=== PATIENT | female | born 1940 | race Caucasian/White ===

== ENCOUNTER 2020-06-20 10:50 | Outpatient (CLI) | payer MEDICARE, SELFPAY ==
--- NOTE | ~2020-06-20 | MM_ITS ---
EXAMINATION: MM screening mammo BI HISTORY: Screening mammogram TECHNIQUE: Full field digital craniocaudal and mediolateral oblique views of both breasts were obtain ed. CAD analysis was submitted and interpreted. COMPARISON: 01/05/2019, 08/06/2017, 04/09/2016 BREAST PARENCHYMAL COMPOSITION: There are scattered areas of fibroglandular density. FINDINGS: There is stable focal asymmetry in the upper outer quadrant of the right breast. There is n o evidence of suspicious mass, calcification, or architectural distortion to suggest malignancy. The re has been no suspicious interval change. IMPRESSION: 1. No mammographic evidence of malignancy. 2. Recommend routine screening mammography in one year. BI-RADS Category 2: Benign finding(s). Reviewed, dictated and finalized at location A.
== END 2020-06-20 10:51 | disposition home or self-care (01) ==
LOC: CHSIMG 10:52
PROVIDERS: PCP Family Medicine; Visit Provider Obstetrics & Gynecology
DX: Z12.31 Encounter for screening mammogram for malignant neoplasm of breast (principal)
CPT/HCPCS: 77063; 77067

== ENCOUNTER 2020-12-07 08:51 | Outpatient (CLI) | payer MEDICARE, SELFPAY ==
[2020-12-07 09:39] LABS: Cholesterol 249 mg/dL (0-200); HDL Direct 65 mg/dL (40-60); LDL Cholesterol Calculated 169 mg/dL (<130); Triglycerides 75 mg/dL (0-150)
== END 2020-12-07 08:52 | disposition home or self-care (01) ==
LOC: CHSLAB 08:53
PROVIDERS: PCP Family Medicine; Visit Provider Family Medicine
DX: E78.5 Hyperlipidemia, unspecified (principal)
CPT/HCPCS: 36415; 80061

== ENCOUNTER → 2020-12-18 04:46 | Outpatient (CLI) | payer MEDICARE, SELFPAY ==
[2020-12-18 19:57] LABS: SARS-CoV-2 RNA PCR Negative
== END ==
PROVIDERS: PCP Family Medicine; Visit Provider Plastic Surgery
DX: Z01.812 Encounter for preprocedural laboratory examination (principal); Z20.822 Contact with and (suspected) exposure to COVID-19
CPT/HCPCS: C9803; U0003; U0005

== ENCOUNTER 2020-12-21 01:13 | Day surgery (SDC) | payer MEDICARE, SELFPAY ==
[2020-12-06 12:23] VITALS: BMI 18.7
[2020-12-21] VITALS (11 sets, daily range): BP systolic 116–169; BP diastolic 77–92; PULSE 101–137; RESP 10–22; TEMP 36.4–36.7; O2SAT 93–100
--- NOTE | ~2020-12-21 | XR_ITS ---
EXAMINATION: XR surgery orthopedic EXAM DATE: 12/21/2020 10:17 INDICATION: Right thumb arthroplasty. TECHNIQUE: Fluoroscopy used during right hand surgery performed by Dr. Dank Pittman MD. Radiolo gist was not present for the imaging or procedure. Total fluoroscopic time of 46 seconds. The DAP f or this procedure was 0.0176 mGym2. A total of 2 images obtained for the exam. FINDINGS: Images demonstrate right trapezium resection, and an orthopedic pin. Correlate with dru beckwith note. IMPRESSION: Fluoroscopy used during right hand surgery. Reviewed, dictated and finalized at location A.
--- NOTE | 2020-12-21 07:15 | WPDHPUPDATE1 ---
History and Physical Update Update Date/Time: 12/21/20 07:15 History and Physical has been reviewed, including an updated exam of the patient. There are NO changes in the patient's condition. Risks, benefits, and alternatives have been discussed and questions answered. Patient agrees to proceed with procedure.
[2020-12-21] MEDS: LACTATED RINGERS 1,000 ML 30 ML IV CONT ×2 (07:40→11:30)
--- NOTE | 2020-12-21 08:32 | P.PNAN_ITS ---
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 Patient Data Age: 80 Gender: F Height: 5 ft 1 in Weight: 44.1 kg Last Vital Signs Temp 98.0 F 12/21/20 07:07 Pulse 105 H 12/21/20 07:07 Resp 20 12/21/20 07:07 BP 169/90 H 12/21/20 07:07 Pulse Ox 99 12/21/20 07:07 Allergies Allergy/AdvReac Type Severity Reaction Status Date / Time lamotrigine Allergy Intermediate palpitation Verified 12/12/20 10:37 s aspirin AdvReac Intermediate GREAT Verified 12/21/20 07:16 STOMACH DISTRESS Home Medications Medication Instructions Recorded Confirmed Type albuterol sulfate 90 mcg/actuation 1 inhalation INHALATION Q4-6H PRN 08/23/19 12/21/20 History breath activated powder inhaler fluticasone 250 mcg-salmeterol 50 1 inhalation INHALATION DAILY each 08/23/19 12/21/20 History mcg/dose blistr powdr for inhalation raloxifene 60 mg tablet 60 mg PO DAILY 08/23/19 12/21/20 History triamcinolone acetonide 55 55 mcg NASAL .1 spray daily 08/23/19 12/21/20 History mcg/actuation nasal spray,aerosol acetaminophen [Tylenol Extra 500 mg PO QID PRN 12/06/20 12/21/20 History Strength] artifi.tears(hypromellose)(PF) 1 drp EACH EYE TID PRN 12/06/20 12/21/20 History cholecalciferol (vitamin D3) 50 mcg PO DAILY 12/06/20 12/21/20 History kp-ot-LL-[place] 3,6,9 #3 [Women's 1 cap PO QAM 12/06/20 12/21/20 History 50+ Advanced] naproxen sodium [Aleve] 220 mg PO Q12H PRN 12/06/20 12/21/20 History Patient hx anesthesia problems: post op nausea/vomiting (give Zofran and Decadron) Family hx anesthesia problems: none PMFSH Past Medical History Medical History Asthma Hyperlipidemia Osteoporosis Surgical History Surgical History History of adenoidectomy History of hysterectomy 1973 Hx of cataract surgery Hx of tonsillectomy Social History Social History Smoking status: Never smoker Second hand tobacco smoke exposure: No Alcohol intake: never Substance use: never Substance use type: does not use Living arrangements: with family Additional living arrangements comments: PT LIVES WITH SON Spiritual care concerns: No Anes - Eval Final PreProcedure Day of Procedure 12/21/20 08:32 Patient weight: normal Heart: regular rate and rhythm Lungs: clear to auscultation Airway: Mallampati scale class II Neurological: alert and oriented Last oral intake: >/= 8 hours ASA classification: II Emergent: no Anesthetic plan: proceed Anesthesia type and monitoring: general LMA and standard monitoring Informed Consent: The patient's anesthetic plan and its attendant risks and benefits were discussed with the patient/family/POA. Questions were solicited and answers provided to the satisfaction of the patient/family/POA.
[2020-12-21] MEDS: ceFAZolin 2 GM/D5W 50 ML 2 GM/50 ML BAG IVPB (08:53)
[2020-12-21] MEDS: LIDO 1%/EPINEPHRINE 1:100,000 50 ML VIAL INFILTRATE (09:20)
[2020-12-21] MEDS: BUPIVACAINE HCL 0.5% PF 30 ML VIAL INFILTRATE (10:04)
--- NOTE | 2020-12-21 10:47 | P.OPB_ITS ---
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 Implants: Arthrex InternalBrace. Anesthesia: GETA Surgeon: Dank Pittman MD Sr. Vendor Management Associate: Kristin Estimated blood loss (mL): 5 Tourniquet time (min): 56 Drains: No Packing: No Pathology: none sent Complications: No immediate complications Condition: stable Disposition: PACU
--- NOTE | 2020-12-21 10:50 | PM.PROC ---
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 She was taken to the operating room placed supine on the operating table. Time-out was held and confirmed. She was given general anesthesia and the extremity was prepped and draped in usual fashion. The site was carefully marked on her hand and locally infiltrated with 1% lidocaine with epinephrine. The tourniquet was inflated to 250 mmHg. The incision was made as marked. Cutaneous nerves were identified and held out of harm's way with quarter-inch Eliezer drain. The interspace between abductor pollicis longus and extensor pollicis brevis was incised exposing the carpometacarpal joint and the trapezium. This area was carefully dissected with a knife and elevators. The trapezium was removed with rongeurs in 2 pieces. An x-ray was taken demonstrating the satisfactory resection. The Arthrex internal brace set was opened on the back table. Appropriate drill sites were identified and the swivel lock anchor was placed at the radial base of the 2nd metacarpal. The 2nd swivel lock was placed at the radial base of the 1st metacarpal with the thumb held adducted to the index. An appropriate and stable construct was established. Capsular material was repaired as we were able. The extensor pollicis brevis remained intact the abductor pollicis longus remained intact. The skin was closed with a running 5 0 chromic suture. The tourniquet was released. A soft bandage and thumb spica radial wrist splint was applied allowing IP joint active motion. This area was also further infiltrated with 0.5% Marcaine plain. She is discharged to the recovery room in stable condition. A prescription for hydrocodone 5/325 number 14 has been sent to her pharmacy. Patient was given 2 g of Ancef IV at the beginning of the case. Anesthesia: LEXI Surgeon: Dank Pittman MD Group Insurance Specialist: Kristin Estimated blood loss (mL): 5 Tourniquet time (min): 56 Drains: No Packing: No Pathology: none sent Complications: No immediate complications Condition: stable Disposition: PACU
[2020-12-21] MEDS: ONDANSETRON INJ 4 MG/2 ML VIAL IV PUSH (10:58)
[2020-12-21] MEDS: fentaNYL CITRATE INJ (*CRX) 100 MCG/2 ML VIAL 25 MCG IV PUSH ×3 (11:13→11:30)
[2020-12-21] MEDS: diphenhydrAMINE HCl INJ 50 MG/ML VIAL 6.25 MG IV PUSH (11:56)
--- NOTE | 2020-12-21 17:07 | SUR.PHASEII ---
Patient acquired a skin tear when removing IV dressing to Left wrist. RN applied gauze and paper tape to skin tear and wrapped with coban.
== END 2020-12-21 13:20 | disposition home or self-care (01) ==
PROVIDERS: PCP Family Medicine; Visit Provider Plastic Surgery
PROC: (CPT 25447; principal; 2020-12-21 09:00)
DX: M18.9 Osteoarthritis of first carpometacarpal joint, unspecified (principal); J45.909 Unspecified asthma, uncomplicated
CPT/HCPCS: 25447; A9270; C9803; J0690; J1100; J1200; J2405; J2704; J3010; J7120; U0003; U0005

== ENCOUNTER 2021-01-02 13:03 | Outpatient (RCR) | payer MEDICARE, SELFPAY ==
--- NOTE | 2021-01-02 14:26 | OTOPEVAL ---
Thank you for referring Rowena Galan to [facility].? The patient is scheduled to be seen for therapy? ____x/week for ___ weeks. Please review, sign, date and return this plan of care RENNY. I agree with and certify that the following plan of care is medically necessary. Referring Physician Date Admitting Provider: Attending Provider: Dank Pittman MD Referring Provider: *OT Outpatient Evaluation Start: 01/02/21 13:02 Freq: Status: Active Protocol: Document 01/02/21 13:03 [facility] (Rec: 01/02/21 13:58 [facility] [id number]) Therapy Assessment Status Assessment Status Assessment Status Evaluation Outpatient Past Medical History Neurological History Hx Neurological Disorders No Significant History Cardiovascular History Hx Hypercholesterolemia Yes: NO MEDDR RAFAELA Le MONITORING LAB VALUES Hx Other Cardiac Disorders Yes: PT DENEIS CARDIAC SYMPTOMS, ACTIVE HAS SET OF EXERCISES THAT SHE DOES DAILY Respiratory History Hx Asthma Yes Gastrointestinal History Hx Gastrointestinal Disorders No Significant History Genitourinary History Hx Genitourinary Disorders No Significant History Musculoskeletal History Hx Arthritis Yes: HANDS Hx Back Pain Yes Hx Osteoporosis Yes Hx Scoliosis Yes Hx Other Musculoskeletal Disorders Yes: OSTEOARTHRITIS RT THUMB CARPOMETACARPAL JOINT Hematological History Hx Hematological Disorders No Significant History Endocrine History Hx Endocrine Disorders No Significant History HEENT History Hx Cataracts Yes: BILATERALLY REMOVED Hx Tonsillectomy Yes Hx Sinus Problems Yes: SEASONAL ALLERGIES Hx Other HEENT Disorders Yes: DRY EYES Integumentary History Hx Excision Skin Lesion Yes: FOREHEAD Reproductive History Hx Hysterectomy Yes Psychosocial History Hx Psychiatric Disorders No Significant History Pain History History of Any Previous or Ongoing No Significant History Instance of Pain Anesthesia History Hx Post-Op Nausea/Vomiting Yes Evaluation Information Problem Diagnosis decreased ROM and decreased strength Onset 12/21/20 Cause trapezium resection arthroplasty Subjective Information Patient had trapezium Query Text:As Reported By Patient/ resection arthroplasty on 12/21 Family . Patient reports that things are going as good as expected. Patient reports
--- NOTE | 2021-01-12 13:11 | PCOTNOTE ---
OCCUPATIONAL THERAPY UPDATE as of 01/12/21 Subjective: Patient arrives to OT this date and reports that she feels her R thumb is doing better. Patient reports that the custom orthosis is a little uncomfortable, specifically around/near her scar. No new complaints. She reports independence with home programming. Objective: Pain: 1/10 pain in R thumb. AROM for R thumb: IP flexion: 55 degrees MP flexion: 35 degrees Radial Abduction: 40 degrees Palmar Abduction: 40 degrees Patient able to oppose thumb to each fingertip. Sensation: Mild tingling/ altered sensation near MP of the R thumb. Patient also reports tightness with AROM Scar: Mild redness is noted around scar this date. Assessment: Patient has been seen for 4 OT sessions since 01/02/21. She continues to progress towards goals, specifically improving ROM of the R thumb. Patient reports independence with home programming in which she is performing AROM exercises. Patient would continue to benefit from skilled OT services in order to further progress with ROM (PROM as of 10/21/20) and strength of the R thumb. Plan: Patient will continue skilled OT services 2-3x/week to further facilitate ROM, strength and coordination of the R thumb. Thanks, Yari Byrnes, OTR/L
--- NOTE | 2021-01-26 11:10 | PCOTNOTE ---
OCCUPATIONAL THERAPY UPDATE as of 01/26/21 Subjective: Patient arrives to OT this date and reports that she feels her R thumb continues to improve. She mentions some soreness after use but overall no concerns and continued improvement. Objective: Pain: 0/10 pain in R thumb. Patient reports, My thumb is a little sore, depending on what I do. AROM for R thumb: IP flexion: 70 degrees MP flexion: 50 degrees Radial Abduction: 50 degrees Palmar Abduction: 45 degrees Patient able to oppose thumb to each fingertip. Sensation: Very mild tingling over scar. Patient reports that overall sensation in the R thumb has gotten much better. Assessment: Patient has been seen for 8 OT sessions since 01/02/21. She has tolerated OT sessions with good skill and demonstrates good ROM of the R thumb. Patient is tolerating strengthening of the R thumb as well. Feel that patient would continue to benefit from skilled OT services for 1-2 additional sessions in order to further progress strength of the R thumb and wrist. Plan: Patient will continue skilled OT services for 1-2 additional sessions in order to facilitate strength and coordination of the R thumb. Thanks, Yari Byrnes, OTR/L
== END 2021-01-30 13:54 | disposition home or self-care (01) ==
LOC: CHSOT 13:03
PROVIDERS: PCP Family Medicine; Visit Provider Plastic Surgery
DX: Z98.890 Other specified postprocedural states (principal)
CPT/HCPCS: 97110; 97140; 97165

== ENCOUNTER 2021-10-01 09:35 | Outpatient (CLI) | payer MEDICARE, SELFPAY ==
[2021-10-01 10:52] LABS: Cholesterol 227 mg/dL (0-200); HDL Direct 62 mg/dL (40-60); LDL Cholesterol Calculated 135 mg/dL (<130); LDL Cholesterol Direct 118 mg/dL (0-130); Triglycerides 149 mg/dL (0-150)
== END 2021-10-01 09:36 | disposition home or self-care (01) ==
LOC: CHSLAB 09:37
PROVIDERS: PCP Family Medicine; Visit Provider Obstetrics & Gynecology
DX: E78.2 Mixed hyperlipidemia (principal)
CPT/HCPCS: 36415; 80061; 83721

== ENCOUNTER 2021-10-02 12:56 | Outpatient (CLI) | payer MEDICARE, SELFPAY ==
--- NOTE | ~2021-10-02 | MM_ITS ---
EXAMINATION: MM screening koko BI w asael HISTORY: Screening TECHNIQUE: Craniocaudal and mediolateral oblique 3-D tomosynthesis images were obtained and synthetic 2-D images were generated. CAD analysis was submitted and interpreted. COMPARISON: Comparison to multiple prior studies sequentially, with oldest reviewed study dated 09/20. BREAST PARENCHYMAL COMPOSITION: There are scattered areas of fibroglandular density. FINDINGS: There is no evidence of suspicious mass, calcification, or architectural distortion to sugg est malignancy in either breast. There has been no suspicious interval change. IMPRESSION: 1. No mammographic evidence of malignancy. 2. Recommend routine screening mammography in one year. BI-RADS Category 1: Negative Reviewed, dictated and finalized at location A. TION INSPECTOR
--- NOTE | ~2021-10-02 | DEXA_ITS ---
Bone Density Report Name: RENUKA OGDEN Age: 81 Sex: Female Ethnicity: White Date of : 1940 Indication: postmenopausal osteoporosis; Referring Provider: JACQUELINE KLEIN Study: Bone densitometry was performed. Exam Date: October 02, 2021 Accession number: [id number] Bone Density: Region BMD T-score Z-score Classification AP Spine(L1-L4) 0.740 -2.8 -0.1 Osteoporosis Femoral Neck (Left) 0.441 -3.7 -1.4 Osteoporosis Total Hip (Left) 0.547 -3.2 -1.2 Osteoporosis Femoral Neck (Right) 0.383 -4.2 -1.9 Osteoporosis Total Hip (Right) 0.497 -3.7 -1.6 Osteoporosis Femoral Neck Mean 0.412 -3.9 -1.7 Osteoporosis Total Hip Mean 0.522 -3.4 -1.4 Osteoporosis World Health Organization criteria for BMD impression classify patients as: Normal (T-score at or above -1.0), Osteopenia (T-score between -1.0 and -2.5), or Osteoporosis (T-score at or below -2.5). 10-year Fracture Risk: FRAX not reported because: Some T-score for Spine Total or Hip Total or Femoral Neck at or below -2.5 Treated for osteoporosis Previous Exams: Region Exam Age BMD T-score BMD Change BMD Change Date g/cm2 vs Baseline vs Previous AP Spine (L1-L4) 10/02/2021 81 0.740 -2.8 -0.016 (-2.1%) -0.023 (-3.0%) 09/13/2019 79 0.763 -2.6 0.007 (0.9%) 0.003 (0.3%) 08/06/2017 77 0.760 -2.6 0.004 (0.5%) -0.005 (-0.7%) 04/13/2014 73 0.765 -2.6 0.009 (1.2%) 0.009 (1.2%) 03/08/2011 70 0.756 -2.6 Total Hip(Left) 10/02/2021 81 0.547 -3.2 -0.018 (-3.2%) 0.041 (8.1%)# 09/13/2019 79 0.506 -3.6 -0.059 (-10.4% -0.011 (-2.2%) 08/06/2017 77 0.517 -3.5 -0.048 (-8.4%) -0.018 (-3.3%) 04/13/2014 73 0.535 -3.3 -0.030 (-5.3%) -0.030 (-5.3%) 03/08/2011 70 0.565 -3.1 Total Hip(Right) 10/02/2021 81 0.497 -3.7 -0.078 (-13.5% -0.010 (-2.0%) 09/13/2019 79 0.507 -3.6 -0.068 (-11.8% -0.022 (-4.2%) 04/13/2014 73 0.529 -3.4 -0.045 (-7.9%) -0.045 (-7.9%) 03/08/2011 70 0.574 -3.0 *Denotes significance at 95% confidence level, LSC for AP Spine = 0.022 g/cm2, LSC for Total Hip = 0.027 g/cm2 # Denotes dissimilar scan types or analysis methods Impression: The patient has osteoporosis, based on the Right Femoral Neck T-score. No significant bone loss was observed. Discussion: INCREASED RISK OF FRACTURE. BONE DENSITY IS UNDESIRABLY LOW AT ONE OR MORE SKELETAL SITES, CONSISTENT WITH POSTMENOPAUSAL OSTEOPOROSIS. This patient's lowest T-score meets the World Health Organization's (WHO) criteria for osteoporosis at one or more sites (T
== END 2021-10-02 12:57 | disposition home or self-care (01) ==
LOC: CHSIMG 12:57
PROVIDERS: PCP Family Medicine; Visit Provider Obstetrics & Gynecology
DX: Z12.31 Encounter for screening mammogram for malignant neoplasm of breast (principal); M81.0 Age-related osteoporosis without current pathological fracture
CPT/HCPCS: 77063; 77067; 77080

== ENCOUNTER 2021-12-04 16:06 | Outpatient (RCR) | payer MEDICARE, SELFPAY ==
--- NOTE | 2021-12-04 17:01 | PTOPEVAL ---
Thank you for referring Rowena Galan to [facility].? The patient is scheduled to be seen for therapy? ____x/week for ___ weeks. Please review, sign, date and return this plan of care RENNY. I agree with and certify that the following plan of care is medically necessary. Referring Physician Date Admitting Provider: Attending Provider: Gilmar Russo DO Referring Provider: *PT Outpatient Evaluation Start: 12/04/21 16:19 Freq: Status: Active Protocol: Document 12/04/21 16:20 [facility] (Rec: 12/04/21 17:00 [facility] [id number]) Therapy Assessment Status Assessment Status Assessment Status Evaluation Outpatient Past Medical History Neurological History Hx Neurological Disorders No Significant History Cardiovascular History Hx Hypercholesterolemia Yes: NO MEDSDR RUSSO MONITORING LAB VALUES Hx Other Cardiac Disorders Yes: PT DENEIS CARDIAC SYMPTOMS, ACTIVE HAS SET OF EXERCISES THAT SHE DOES DAILY Respiratory History Hx Asthma Yes Gastrointestinal History Hx Gastrointestinal Disorders No Significant History Genitourinary History Hx Genitourinary Disorders No Significant History Musculoskeletal History Hx Arthritis Yes: HANDS Hx Back Pain Yes Hx Osteoporosis Yes Hx Scoliosis Yes Hx Other Musculoskeletal Disorders Yes: OSTEOARTHRITIS RT THUMB CARPOMETACARPAL JOINT Hematological History Hx Hematological Disorders No Significant History Endocrine History Hx Endocrine Disorders No Significant History HEENT History Hx Cataracts Yes: BILATERALLY REMOVED Hx Tonsillectomy Yes Hx Sinus Problems Yes: SEASONAL ALLERGIES Hx Other HEENT Disorders Yes: DRY EYES Integumentary History Hx Excision Skin Lesion Yes: FOREHEAD Psychosocial History Hx Psychiatric Disorders No Significant History Pain History History of Any Previous or Ongoing No Significant History Instance of Pain Anesthesia History Hx Post-Op Nausea/Vomiting Yes Evaluation Information Problem Diagnosis osteoporosis, lumbago, scoliosis Onset 10/23/21 Additional Evaluation Detail oswestry = 10% functionally declined Subjective Information patient reports she was here Query Text:As Reported By Patient/ in early 2019 for lower back Family pain. she reports she has been doing well with her exercises . she reports she was out in her yeard in early october doing
--- NOTE | 2021-12-28 15:50 | PTOPEVAL ---
Thank you for referring Rowena Galan to [facility].? The patient is scheduled to be seen for therapy? ____x/week for ___ weeks. Please review, sign, date and return this plan of care RENNY. I agree with and certify that the following plan of care is medically necessary. Referring Physician Date Admitting Provider: Attending Provider: Gilmar Russo DO Referring Provider: *PT Outpatient Evaluation Start: 12/04/21 16:19 Freq: Status: Active Protocol: Document 12/28/21 11:00 [facility] (Rec: 12/28/21 15:48 [facility] [id number]) Therapy Assessment Status Assessment Status Assessment Status Discharge Outpatient Past Medical History Neurological History Hx Neurological Disorders No Significant History Cardiovascular History Hx Hypercholesterolemia Yes: NO MEDSDR RUSSO MONITORING LAB VALUES Hx Other Cardiac Disorders Yes: PT DENEIS CARDIAC SYMPTOMS, ACTIVE HAS SET OF EXERCISES THAT SHE DOES DAILY Respiratory History Hx Asthma Yes Gastrointestinal History Hx Gastrointestinal Disorders No Significant History Genitourinary History Hx Genitourinary Disorders No Significant History Musculoskeletal History Hx Arthritis Yes: HANDS Hx Back Pain Yes Hx Osteoporosis Yes Hx Scoliosis Yes Hx Other Musculoskeletal Disorders Yes: OSTEOARTHRITIS RT THUMB CARPOMETACARPAL JOINT Hematological History Hx Hematological Disorders No Significant History Endocrine History Hx Endocrine Disorders No Significant History HEENT History Hx Cataracts Yes: BILATERALLY REMOVED Hx Tonsillectomy Yes Hx Sinus Problems Yes: SEASONAL ALLERGIES Hx Other HEENT Disorders Yes: DRY EYES Integumentary History Hx Excision Skin Lesion Yes: FOREHEAD Psychosocial History Hx Psychiatric Disorders No Significant History Pain History History of Any Previous or Ongoing No Significant History Instance of Pain Anesthesia History Hx Post-Op Nausea/Vomiting Yes Evaluation Information Problem Diagnosis osteoporosis, lumbago, scoliosis Onset 10/23/21 Subjective Information patient reports she feels Query Text:As Reported By Patient/ good this date. she reports Family still has some increased soreness in the back at times, but reports she is doing good managing with exercises at home. Pain Assessment Timing of Pain Assessment Timing of Pain Assessment Assessment
== END 2021-12-28 16:19 | disposition home or self-care (01) ==
LOC: CHSPT 16:06
PROVIDERS: PCP Family Medicine; Visit Provider Family Medicine
DX: M81.0 Age-related osteoporosis without current pathological fracture (principal); M41.9 Scoliosis, unspecified; M54.50 Low back pain, unspecified
CPT/HCPCS: 97014; 97110; 97161; 97530; G0283

== ENCOUNTER 2023-04-24 01:47 | Day surgery (SDC) | payer MEDICARE, SELFPAY ==
[2023-04-17 10:13] VITALS: BMI 18.9
--- NOTE | 2023-04-17 10:31 | PC.NURSE ---
Report to the Outpatient Waiting Room, entrance under the green pavilion located off [facility], at time ____0615___ on date __04/24/23 . Planned Procedure Time: ___814 . Time changes happen often and if your time is changed the preop area will call you the afternoon before. - You and your visitor will be asked to self-screen and do not enter if you have any COVID symptoms. - A mask is optional within the hospital at this time. Patients may have clear liquids (water, carbonated beverages, clear teas, apple juice) until 3 hours prior to surgery (0515 AM) with a maximum of 20 ounces. - No food from midnight until time of surgery - Infants may have breast milk until 4 hours before surgery, formula 6 hours prior to surgery. - Children will be allowed to drink immediately following surgery. If applicable, please bring a bottle or sippy cup to assist with drinking. Juice, water, soda, and popsicles are readily available. For infants on formula, please bring formula the day of surgery. Pacifiers are allowed. Take the following medications with a SIP of water the morning of surgery: _ADVAIR INHALER, & TYLENOL, EYE DROPS IF NEEDED_ DO NOT STOP ANY OF YOUR OTHER PRESCRIPTION MEDICATIONS PRIOR TO SURGERY ?EXCEPT THE FOLLOWING Medications to discontinue per ANESTHESIA - _MULTIVITAMINS/SUPPLEMENTS 3 DAYS PRIOR TO SURGERY, Date to take last dose 04/20/23_ Please no make-up, nail divehi, hairspray, perfume, deodorant, or body powder the day of surgery. No jewelry (including any body piercings) or valuables the day of surgery, leave them at home. Please take a shower or bath the night before, or the morning of, surgery with an antibacterial soap. Wear comfortable, loose fitting clothing. Children are encouraged to wear pajamas. - Jewelry must be removed prior to entering the operating room. Rings and piercings that are not removed may be cut off. - The hospital will not accept responsibility for valuables. - Please leave all valuables, including medications, at home the day of surgery. If you are going home after surgery, a licensed regional owner operator truck driver must drive you home. - NO public transportation without another adult if you receive anesthesia. - We recommend that an adult stay with you for 24 hours following discharge. - We also recommend that you do not drive, make important decision, drink alcoholic beverages, or take any drugs that were not prescribed by your health care provider for at least 24 hours after your discharge time. For Pediatric surgeries, we recommend two adults accompany the child home. Follow any additional instructions given to you from your surgeon. If you or anyone in your household have experienced Covid symptoms in the past week, please notify your surgeon or the nurse liaison at the phone number below for possible testing. Telephone instructions given to ____PT and asked if any additional questions and then verbalized understanding. Patient advised to call surgeon office or pre surgery nurse liaison [phone] if any additional questions.
[2023-04-24] VITALS (10 sets, daily range): BP systolic 129–167; BP diastolic 75–90; PULSE 79–91; RESP 14–18; TEMP 36.1–36.5; O2SAT 95–100
--- NOTE | ~2023-04-24 | XR_ITS ---
EXAMINATION: XR surgery orthopedic DATE: 04/24/2023 10:07 INDICATION: Left thumb suspension arthroplasty TECHNIQUE: Single fluoroscopic image of the left wrist and carpus was obtained during procedure perfo rmed by Dr. Pittman. Radiologist was not present for the imaging or procedure. The amount of fluoroscop y time used during this procedure was 0.7 minutes. COMPARISON: None. FINDINGS: Postoperative changes consistent with a left first carpal metacarpal suspension arthroplasty with exp ected lucent gas in the left trapezium resection bed. Alignment of the remaining bones is normal. No fracture identified. The profiled joint spaces are unremarkable. IMPRESSION: 1. Expected appearance post left trapezium resection for first carpal metacarpal suspension arthropla sty. See procedure note for further detail. Reviewed, dictated and finalized at location A. IMPRESSION: 1. Expected appearance post left trapezium resection for first carpal metacarpa l suspension arthroplasty. See procedure note for further detail.
[2023-04-24] MEDS: LACTATED RINGERS 1,000 ML 30 ML IV CONT (06:45)
[2023-04-24] MEDS: ACETAMINOPHEN 500 MG TABLET 1000 MG PO (07:00)
--- NOTE | 2023-04-24 07:15 | WPDHPUPDATE1 ---
History and Physical Update Update Date/Time: 04/24/23 07:15 History and Physical has been reviewed, including an updated exam of the patient. There are NO changes in the patient's condition. Risks, benefits, and alternatives have been discussed and questions answered. Patient agrees to proceed with procedure.
--- NOTE | 2023-04-24 07:38 | WPDANESEPPF ---
Anes - Initial Pre Proc Eval Procedure: Operation Date: 04/24/23 08:15 Proposed Procedures p Left Trapezium Resection Arthroplasty with Arthrex Internal Brace - Dank Pittman MD Date/Time: 04/24/23 07:38 Surgeon: Dank Pittman MD Pre Op Diagnosis: Lt Basal Joint O.A. Patient Data Age: 82 Gender: F Height: 1.55 m Weight: 45.45 kg Allergies Allergy/AdvReac Type Severity Reaction Status Date / Time lamotrigine Allergy Intermediate palpitation Verified 04/24/23 07:46 s aspirin AdvReac Intermediate GREAT Verified 04/24/23 07:46 STOMACH DISTRESS Home Medications Medication Instructions Recorded Confirmed Type albuterol sulfate 90 mcg/actuation 1 inhalation inhalation Q4-6H PRN 08/23/19 04/24/23 History breath activated powder inhaler Wheezing (ProAir RespiClick) fluticasone 250 mcg-salmeterol 50 1 inhalation inhalation DAILY 08/23/19 04/24/23 History mcg/dose blistr powdr for inhalation (Advair Diskus) triamcinolone acetonide 55 55 mcg intranasal .1 spray daily 08/23/19 04/24/23 History mcg/actuation nasal spray,aerosol DRY NOSE acetaminophen 500 mg tablet 500 mg PO QID PRN Pain 12/06/20 04/24/23 History (Tylenol Extra Strength) artifi.tears(hypromellose)(PF) 0.3 1 drp EACH EYE TID PRN Dry Eyes 12/06/20 04/24/23 History % eye drops irlqvrdygjnr-[id number]-TS-omega 1 cap PO QAM 12/06/20 04/24/23 History 3,6,9 #3 400 mcg capsule magnesium hydroxide 1,200 mg 1,200 mg PO DAILY 11/19/22 04/24/23 History chewable tablet Patient hx anesthesia problems: post op nausea/vomiting Family hx anesthesia problems: none Results Review: All pre-operative results and documents have been reviewed as part of the pre-operative evaluation. [facility] Past Medical History Medical History (Updated 11/19/22 @ 13:51 by Gilmar Robb DO) Asthma Hyperlipidemia Osteoporosis Surgical History Surgical History History of adenoidectomy History of hysterectomy 1973 Hx of cataract surgery Hx of tonsillectomy Social History Social History Smoking status: Never smoker Second hand tobacco smoke exposure: No Alcohol intake: never Substance use: never Substance use type: does not use Living arrangements: with family Additional living arrangements comments: LIVES WITH SOHEILA STRICKLAND Occupation/Education: retired Spiritual care concerns: No Anes - Eval Final PreProcedure Day of Procedure 04/24/23 07:38 Patient weight: normal Heart: regular rate and rhythm Lungs: clear to auscultation and normal air movement Airway: Mallampati scale class II Neurological: alert and oriented Last oral intake: >/= 8 hours ASA classification: II Emergent: no Anesthetic plan: proceed Anesthesia type and monitoring: general GIVS and standard monitoring Results Review: All pre-operative results and documents have been reviewed as part of the pre-operative evaluation. Informed Consent: The patient's anesthetic plan and its attendant risks and benefits were discussed with the patient/family/POA. Questions were solicited and answers provided to the satisfaction of the patient/family/POA.
[2023-04-24] MEDS: ceFAZolin 2 GM/D5W 50 ML 2 GM/50 ML BAG IVPB (09:16)
--- NOTE | 2023-04-24 10:38 | PM.OP ---
Procedure Note - Brief Procedure Note - Brief Date of procedure: 04/24/23 Lt Basal Joint O.A. Post-op diagnosis: Same Procedure performed: Left trapeziectomy with Arthrex InternalBrace Surgeon: Dank Pittman MD Equity Analyst: Pieter Anesthesia: GLMA Findings: Arthritis with satisfactory bone stock for this procedure. Implants: Arthrex InternalBrace Tourniquet time (min): 56 Drains: No Packing: No Pathology: None sent Complications: No immediate complications Condition: Stable Disposition: PACU
[2023-04-24] MEDS: oxyCODONE HCL (*CRX) 2.5 MG TAB IR PO (11:20)
[2023-04-24] MEDS: ONDANSETRON HCL ODT 4 MG TABLET PO (13:15)
--- NOTE | 2023-04-24 13:45 | P.OP_ITS ---
Procedure Note - Detailed Date of Procedure 04/24/23 Pre-op Diagnosis Lt Basal Joint O.A. Post-op Diagnosis Same Procedure Performed Left trapezium resection arthroplasty with Arthrex InternalBrace suspension Surgeon Dank Pittman MD Corporate Licensed Broker Arthur Anesthesia General Indications Pain Findings Osteoarthritis with satisfactory bone stock Description of Procedure The left 1st basal joint region was marked on the patient with her consent in the holding area. She was taken to the operating room where she was placed supine on the operating table. At that point I administered a radial and median nerve block with 2% lidocaine. This was based on Anesthesia's concern for her cardiopulmonary status. She was then given general anesthesia. The left upper extremity was prepped and draped in the usual fashion. The site was examined and marked for the incision over the radial 1st metacarpal. This area was also locally infiltrated with 1% lidocaine with epinephrine. The extremity was exsanguinated and the tourniquet inflated to 220 mmHg. The incision was made and blunt dissection toward the 1st carpal metacarpal joint revealed branches of sensory nerve passing through the area. These were held carefully under the skin flaps as the procedure proceeded. The capsule was incised between the EPB and the a APL. The trapezium was dissected around the periphery until it could be split and taken out piecemeal. C-arm images confirmed the vacancy in the carpus. Arthrex InternalBrace set was opened on the back table. The insertion area and angle of approach at the radial base of the 2nd metacarpal was confirmed with images and the C-wire. The guide wire was then passed into the radial base exiting through the opposite cortex. The threaded drill guide was then passed over that and advanced to the medullary aspect of the cortex. This was confirmed with C-arm images. The guidewire was removed and construction project engineer with the fiber lock was passed through the ulnar cortex and seated. The guide was removed. SwiveLock. SwiveLock was passed over the suture tape and positioned appropriately. The extra tape was cut. A portion of the joint capsule was repaired with vicryl suture. The skin was closed with 5 0 nylon. A soft bandage with ortho glass short-arm thumb spica splint was applied. The patient was discharged from the operating room in stable condition. She is discharged with a prescription for hydrocodone 5/325 number 7 and Zofran 4 mg number 7. She was given Ancef 2 g preop. Estimated Blood Loss 3 Tourniquet Time 56 Drains No Packing No Pathology None sent Complications No immediate complications Condition Stable Disposition PACU
== END 2023-04-24 13:35 | disposition home or self-care (01) ==
PROVIDERS: PCP Family Medicine; Visit Provider Plastic Surgery
PROC: (CPT 25447; principal; 2023-04-24 08:15)
DX: M18.12 Unilateral primary osteoarthritis of first carpometacarpal joint, left hand (principal); Z79.51 Long term (current) use of inhaled steroids; J45.909 Unspecified asthma, uncomplicated; M81.0 Age-related osteoporosis without current pathological fracture
CPT/HCPCS: 25447; 99199; A9270; C1713; J0690; J1100; J2405; J2704; J3010; J7120

== ENCOUNTER 2023-05-05 14:13 | Outpatient (RCR) | payer MEDICARE, SELFPAY ==
--- NOTE | 2023-05-06 11:05 | BUOTOPEVAL ---
Assessment and note entered by Twila Sarah OT Evaluation Information Assessment Status Evaluation Diagnosis S/p trapezium resection with internal brace L hand Onset 04/24/23 Subjective Information The patient reports pain on dorsal part of hand and lateral portion of thumb. The patient reports that she is very motivated to return function to her hand because she has a lot of things she wants to do and get done. She stated she has trips she wants to go on and is ready to be able to use her hand. Reported Pain Level Pain Score 2: Self Report Assessment OT Clinical Summary The patient is an 82 year old female who was referred to outpatient OT due to trapezium resection with internal brace L hand. The patient previously demonstrated moderate pain leading to the surgery with WFL AROM and strength of L hand. The patient now demonstrates moderately impaired AROM and limited strength due to surgery. The patient demonstrates swelling from incision and has a scar on lateral portion of L hand. The patient demonstrates 40.9% on QuickDASH questionnaire that shows moderately impaired function of L hand affecting her ability to complete her daily tasks with independence. The patient requires skilled OT to address these deficits and return to PLOF. Plan of Care Interventions Therapeutic Exercise,Manual Therapy,Neuro Re- education,Therapeutic Activities,Hot Pack/Cold Pack,Electrical Stimulation,Sensory Integrative Techn,Self-Care/Home Management,Prosthetic Training,Ultrasound OT Services Indicated Yes Treatment Frequency and 2-3x/week for 10 visits. Duration These treatments will address the objective and functional deficits as defined above. The patient will be advanced safely and appropriately in order for the patient to progress towards his/her prior level of function. Additional exercises will be introduced and as well as a comprehensive home exercise program upon discharge, if needed, ?to ensure carryover of functional gains achieved in the clinic. This treatment plan has been reviewed and agreement upon by the patient.
== END 2023-05-22 23:59 | disposition home or self-care (01) ==
LOC: CHSOT 14:13
PROVIDERS: Visit Provider Plastic Surgery
DX: Z48.89 Encounter for other specified surgical aftercare (principal)
CPT/HCPCS: 97110; 97140; 97165; 97530

== ENCOUNTER 2023-05-28 13:16 | Outpatient (CLI) | payer MEDICARE, SELFPAY ==
--- NOTE | ~2023-05-28 | MM_ITS ---
EXAMINATION: MM screening [facility] BI w asael HISTORY: Screening mammogram TECHNIQUE: Craniocaudal and mediolateral oblique 3-D tomosynthesis images were obtained and synthetic 2-D images were generated. CAD analysis was submitted and interpreted. COMPARISON: 10/02/2021, 06/20/2020, 01/05/2019 BREAST PARENCHYMAL COMPOSITION: There are scattered areas of fibroglandular density. FINDINGS: Stable focal asymmetry is again noted in the upper outer quadrant of the right breast. No s uspicious mass, calcification, or architectural distortion are identified in either breast to suggest malignancy. There has been no suspicious interval change. IMPRESSION: 1. No mammographic evidence of malignancy. 2. Recommend routine screening mammography while the patient remains in good health. BI-RADS Category 2: Benign finding(s). Reviewed, dictated and finalized at location A. IMPRESSION: 1. No mammographic evidence of malignancy. 2. Recommend routine screening mammography while the patient remains in good he alth. BI-RADS Category 2: Benign finding(s).
== END 2023-05-28 13:17 | disposition home or self-care (01) ==
LOC: CHSIMG 13:18
PROVIDERS: PCP Family Medicine; Visit Provider Obstetrics & Gynecology
DX: Z12.31 Encounter for screening mammogram for malignant neoplasm of breast (principal)
CPT/HCPCS: 77063; 77067

== ENCOUNTER 2024-03-05 14:20 | Outpatient (CLI) | payer MEDICARE, SELFPAY ==
--- NOTE | ~2024-03-05 | DEXA_ITS ---
? Bone Density Report? Name:? RENUKA OGDEN Patient ID:??? [id number] Age:? 83 Sex:? Female Ethnicity:? White Date of : 1940 Indication: postmenopausal; screening for osteoporosis; height loss; asthma or emphysema; Referring Provider: UNKNOWN, UNKNOWN Study: Bone densitometry was performed. Exam Date: March 05, 2024 Accession number: [id number] Bone Density: Region? BMD??? T-score? Z-score?? Classification AP Spine(L1-L4)? 0.704?? -3.1? -0.4? Osteoporosis Femoral Neck (Left)? 0.434?? -3.7? -1.4? Osteoporosis Total Hip (Left)? 0.587?? -2.9? -0.8? Osteoporosis Femoral Neck (Right)? 0.475?? -3.4? -1.0? Osteoporosis Total Hip (Right)? 0.581?? -3.0? -0.8? Osteoporosis Femoral Neck Mean? 0.454?? -3.6? -1.2? Osteoporosis Total Hip Mean? 0.584?? -2.9? -0.8? Osteoporosis World Health Organization criteria for BMD impression classify patients as: Normal (T-score at or above -1.0), Osteopenia (T-score between -1.0 and -2.5), or Osteoporosis (T-score at or below -2.5). 10-year Fracture Risk: FRAX not reported because: ? Some T-score for Spine Total or Hip Total or Femoral Neck at or below -2.5 Clinical Information Provided by Patient: Has the following medical conditions: Asthma or Emphysema Patient maximum height was 61.5 Menopause Age: 52 No regular weight bearing exercise Onset of menses at age 14 Number of children 3 Impression: The patient has osteoporosis, based on the Left Femoral Neck T- score. Discussion: INCREASED RISK OF FRACTURE. BONE DENSITY IS UNDESIRABLY LOW AT ONE OR MORE SKELETAL SITES, CONSISTENT WITH POSTMENOPAUSAL OSTEOPOROSIS. This patient's lowest T-score meets the World Health Organization's (WHO) criteria for osteoporosis at one or more sites (T-score -2.5 or below).? In untreated patients, the risk of osteoporotic fracture increases approximately two-fold for each 1.0 SD decrease in T-score.? Low bone density is not the only risk factor for fracture; also consider factors such as patient's age, frailty or poor health, risk of falling, risk of injury, previous osteoporotic fracture, family history of osteoporosis, cigarette smoking, low body weight, etc.? Not everyone with low bone mineral density has osteoporosis; osteomalacia and other metabolic bone disorders should also be considered. Patients who have osteoporosis should be evaluated for specific diseases and conditions (secondary causes) that may cause or contribute to bone loss.? The [place] Association of Clinical Endocrinologists (AACE) and National Osteoporosis Foundation (NOF) recommend pharmacologic intervention for all postmenopausal women whose T-score is in this range. The patient silvestre
== END 2024-03-05 14:21 | disposition home or self-care (01) ==
LOC: CHSIMG 14:25
PROVIDERS: PCP Family Medicine
DX: Z78.0 Asymptomatic menopausal state (principal); M81.0 Age-related osteoporosis without current pathological fracture
CPT/HCPCS: 77080

== ENCOUNTER 2024-12-03 12:46 | Outpatient (CLI) | payer MEDICARE, SELFPAY ==
--- NOTE | ~2024-12-03 | MM_ITS ---
EXAMINATION: MM screening [facility] BI w asael HISTORY: Screening TECHNIQUE: Craniocaudal and mediolateral oblique 3-D tomosynthesis images were obtained and synthetic 2-D images were generated. CAD analysis was submitted and interpreted. COMPARISON: Comparison to multiple prior studies sequentially, with oldest reviewed study dated 04/09. BREAST PARENCHYMAL COMPOSITION: Not dense: There are scattered areas of fibroglandular density. FINDINGS: There is no evidence of suspicious mass, calcification, or architectural distortion to sugg est malignancy in either breast. There has been no suspicious interval change. IMPRESSION: 1. No mammographic evidence of malignancy. 2. Recommend routine screening mammography in one year. BI-RADS Category 1: Negative Reviewed, dictated and finalized at location A.
--- OUTSIDE RECORDS SUMMARY | 2024-12-03 12:56 | XMS_ITS | Referral Summary ---
Author Organization [facility] [address] Address [address] [place] [address] Care Team Providers Care Track Helper Name Role Phone SilvanoGilmar howell Zambrano Primary Care Provider Allergies Active Allergy Reactions Criticality Noted Date Comments Aspirin Medications Advair Diskus 250-50 mcg/dose diskus inhaler 0 Active albuterol HFA (PROVENTIL HFA,VENTOLIN HFA,PROAIR HFA) 90 mcg/actuation inhaler Inhale 2 puffs every 6 (six) hours as needed for wheezing Active triamcinolone (NASACORT) 55 mcg nasal inhaler Administer 2 sprays into each nostril daily Active magnesium citrate 100 mg tablet Take by mouth Active collagen, hydrolysate, bovine, (collagen, hydr, bovine,, bulk,) 100 % powder Active acetaminophen (TYLENOL) 500 mg tablet Take 500 mg by mouth every 6 (six) hours as needed for pain Active Active Problems Problem Noted Date Diagnosed Date 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 Gender Identity Not on file Sexual Orientation Not on file Last Filed Vital Signs Vital Sign Reading Time Taken Comments Blood Pressure - - Pulse - - Temperature 36.8 C (98.2 F) 05/02/2020 9:49 AM CDT Respiratory Rate 17 06/13/2021 10:46 AM CDT Oxygen Saturation - - Inhaled Oxygen Concentration - - Weight 45.4 kg (100 lb) 02/18/2022 9:37 AM CDT Height 153 cm (5' 0.25 ) 02/18/2022 9:37 AM CDT Body Mass Index 19.37 02/18/2022 9:37 AM CDT Plan of Treatment Not on file Insurance [facility] Address: [address] [place] [id number] UHC MEDICARE ADVANTAGE [facility] Address: [address] [address] [place] [phone] Care Teams Track Helper Relationship Specialty Start Date End Date Gilmar Robb DO [address] [place] [address] PCP - General Family Medicine 04/14/20
--- OUTSIDE RECORDS SUMMARY | 2024-12-03 12:56 | XMS_ITS | Continuity of Care Document ---
Author Organization [facility] [place] Address [address] [place] [address] Phone Care Team Providers Care Tile Designer Name Role Phone Robert Iraheta MD Unavailable Unavailable Allergies, Adverse Reactions, Alerts Substance Reaction Status Criticality aspirin Active No Information Medications Medication Instructions Dosage Effective Dates (start - stop) Status Comments Blink OPHTHALMIC DROPS 1 gtt in both eyes when needed - Active Vitamin D3 50 mcg (2,000 unit) tablet take one tablet daily - Active acetaminophen 500 mg tablet take 2 tablet by oral route every 4 - 6 hours as needed not to exceed 8 tablets per 24hrs 1000 MG - Active Advair Diskus 250 mcg-50 mcg/dose powder for inhalation inhale 1 puff by inhalation route 2 times every day in the morning and evening approximately 12 hours apart 1.00 puff - Active Aleve 220 mg tablet take 1 tablet by ora l route every 12 hours as needed 220 MG - Active Crestor 20 mg tablet take 1 tablet by or al route every day 20 MG - Active Evista 60 mg tablet take 1 tablet by ora l route every day 60 MG - Active ProAir HFA 90 mcg/actuation aerosol inhaler inhale 2 puff by inhalation route every 4 - 6 hours as needed - Active Nasacort 55 mcg nasal spray aerosol use prn - Active Co Q-10 200 mg capsule 1 tablet twice a day by mouth - Active Women's Multivitamin Gummies 200 mcg chewable tablet 1 tablet by mouth once a day by mouth - Active Procedures Procedure Date No Charge Optomap Fundus Photos Eye Exam & Treatment Fundus Photography W/ Report Eye Exam & Treatment Office/outpatient Visit, Est NEAR IFR 2IMG MIBMN GLND I&R Fundus Photography W/ Report No Charge Refraction Eye Exam & Treatment Fundus Photography W/ Report Eye Exam & Treatment Fundus Photography W/ Report Eye Exam & Treatment Eye Exam, New Patient No Charge Refraction Post-op Follow-up Visit After Cataract Laser Surgery No Charge Refraction No Charge Refraction After Cataract Laser Surgery No Charge Refraction Office/outpatient Visit, Est No Charge Refraction InflammaDry InflammaDry Eye Exam, New Patient Advance Directives Directive Yes / No Effective Date File Name No Information Encounters Encounter Description Practice Location Reason(s) For Visit Diagnoses Date Provider Providers Copied on [facility]counter [facility], [id number], [place], [place], [address], [place] tel:[phone] [place] Complete Exam (chief complaint) Bilateral artificial lens implantChoroi trung nevus of right eye 3 Esequiel Jones. [address], [facility] [place], [address], [place]. tel:[phone] Referring Provider: Robert Mahoney, [address], [place], [address] . tel:[phone] [facility], [address], [place], [place], [address], tel:[phone] [place] Complete Exam (chief complaint) Bilateral artificial lens implantChoroi trung nevus of right eyeDry eye syndrome of bilateral lacrimal glands 2 Esequiel Jones. [address] [facility], [place], [place], [address], . tel:[phone] Referring Provider: Robert Mahoney, [address], [place], [address] . tel:[phone] Office/outpa tient Visit, Est [facility], [address] [place] [address] [address], [place], [place], [address], tel:[phone] DEI Lester Dry eye evaluation (chief complaint) Dry eye syndrome of bilateral lacrimal glandsMeibomi an gland dysfunction (MGD) of both eyes Feb-0 1 Milagros OD Jessica. [address] [place] [address] [address], [address], [place], [place], [address], [place]. tel:[phone] Referring Provider: Robert Mahoney, [address], [place], [address] . tel:[phone] [facility], [address] [place] [address] [address], [place], [place], [address], [place] tel:[phone] [place] Complete Exam (chief complaint) Bilateral artificial lens implantDry eye syndrome of bilateral lacrimal glandsChoroid al nevus of right eyeMeibomian gland dysfunction (MGD) of both eyesVitreous degeneration, right eye Apr-0 1 Esequiel Jones. [address], [facility], [place], [place], [address], . tel:[phone] Referring Provider: Robert Mahoney, [address], [place], [address] . tel:[phone] [facility], [address] [place] [address] [address], [place], [place], [address], tel:[phone] [place] Complete Exam (chief complaint) Bilateral artificial lens implantChoroi trung nevus of right eyePunctate keratitis, bilateral Feb-2 0 Esequiel Jones. [address], [address], [place], [place], [address], [place]. tel:[phone] Referring Provider: Robert Mahoney, [address], [place], [address] . tel:[phone] [facility], [address] [place] [address] [address], [place], [place], [address], [place] tel:[phone] [place] Complete Exam (chief complaint) Choroidal nevus of right eyeBilateral artificial lens implantEpiret inal membrane (ERM) of right eyeHistory of retinal tearLattice degeneration of retina, left eye 9 Esequiel Jones. [address] [facility], [address], [place], [place], [address], [place]. tel:[phone] Referring Provider: Robert Mahoney, [address], [place], [address] . tel:[phone] [facility], [address] [place] [address] [address], [place], [place], [address], [place] tel:[phone] [place] No Information 9 Esequiel Jones. [address], [address], [place], [place], [address], [place]. tel:[phone] [facility], [address], [place], [place], [address], [place] tel:[phone] [place] Complete Exam (chief complaint) Bilateral artificial lens implantChoroi trung nevus of right eyeBilateral dry eyesHistory of retinal tear 8 Esequiel Jones. [address], [address], [place], [place], [address], [place]. tel:[phone] Referring Provider: Robert Mahoney, [address], [place], [address] . tel:[phone] [facility], [address], [place], [place], [address], [place] tel:[phone] [place] Yag Cap PO (chief complaint) No Information 7 Esequiel Jones. [address] [employer], [address], [place], [place], [address], [place]. tel:[phone] Referring Provider: Robert Mahoney, [address], [place], [address] . tel:[phone] [facility], [address], [place], [place], [address], [place] tel:[phone] [place] Post-Op (chief complaint) No Information 7 Esequiel Jones. [address], [address], [place], [place], [address], [place]. tel:[phone] Referring Provider: Robert Mahoney, [address], [place], [address] . tel:[phone] Office/outpa tient Visit, [facility] [place], [address] [place] [address] [address], [place], [place], [address], [place] tel:[phone] [place] JAMES f/u and IOP check (chief complaint) No Information 7 Esequiel Jones. [address], [address], [place], [place], [address], [place]. tel:[phone] Referring Provider: Robert Mahoney, [address], [place], [address] . tel:[phone] [facility], [address], [place], [place], [address], [place] tel:[phone] [place] Dry eyes (chief complaint) No Information 6 Esequiel Jones. [address] [facility], [address], [place], [place], [address], [place]. tel:[phone] Referring Provider: Robert Mahoney, [address] [facility] [facility] [address], [place], [address] . tel:[phone] [facility], [address], [place], [place], [address], tel:[phone] [place] No Information 6 Esequiel Jones. [address], [address], [place], [place], [address], [place]. tel:[phone] Family History Family Member Type Diagnosis Age At Onset No Information Payers Payer name Insurance type Covered libertarian ID Authoriza karen(s) [employer] Mdcr Gold Adv Prime CI [id number] Social History Type Description Quantity Date Captured Comments Alcohol Use Details No Caffeine Use Details coffee and tea 3 cups per day 2022 Tobacco Use Status Ex-cigarette smoker 023 Smoking Status Former smoker Smoking Tobacco Use Details Cigarette: Age Stopped: 21 Cigarette: No Details Available Sex Female Gender Identity Female Chief Complaint And Reason For Visit From encounter dated '02/14/2023 13:30'. Complete Exam (chief complaint). Description: The 82 year old patient presents for evaluation of Complete Exam in the right eye and left eye. Patient denies any changes with her VA. Patient has dry eyes and is using Blink prn OU. Reason For Referral Reason For Referral No Information Plan Of Treatment Date Type Action Status Goal Tobacco cessation counseling completed Goal Tobacco cessation counseling completed Patient Education Learning About Your Eye s completed Patient Education Dry Eyes: Care Instruct ions completed Patient Education Learning About Vitreous Detachment completed Patient Education Dry Eyes: Care Instruct ions completed History Of Present Illness Encounter Date Complaint History Of Prese nt Illness Complete Exam The 82 year old patient presents for evaluation of Complete Exam in the right eye and left eye. Patient denies any changes with her VA. Patient has dry eyes and is using Blink prn OU. Complete Exam The 81 year old patient presents for evaluation of Complete Exam in the right eye and left eye. Hx of PCIOL OU, YAG PC OU, SPK OU, ERM OD, PVD OD, Nevus OD, and Lattice degen OU. Patient does state eyes are very dry and they burn as well. Patient using Blink, Retaine, and gel tears prn OU. Dry eye evaluation The 80 year o ld female presents for evaluation of Dry eye evaluation in the right eye and left eye. Referred by Dr. Iraheta. Pt states that she is having dryness in both eyes. Both eyes equally the same. Pt is currently using Blink gel tears 2-3 x day OU PRN.TBUT 4.78/3.82SPEED 08/21 Complete Exam The 80 year old female presents for evaluation of Complete Exam in the right eye and left eye. Hx of PCIOL OU, YAG PC OU, JAMES OU, Nevus OD, ERM OD, PVD OD, and Lattice degeneration OU. Pt she uses Blink enzo TID-QID and OU has been itching, burning, and dry, x yrs, seems to change according to the seasons. Pt reports she received a letter from [facility] and she thinks she may go there for eval. Pt reports she feels like she is not seeing things as clear as she used to, OU. Complete Exam The 79 year old female presents for evaluation of Complete Exam in the right eye and left eye. Hx of Nevus OD, JAMES OU, PCIOL OU, YAG PC OU, ERM OD, PVD OD, and Lattice degen OS. Patient denies any problems or changes with VA. Patient states she is using Blink prn OU for her dry eyes. Complete Exam The 78 year old female presents for a complete exam ou monitoring choroidal nevus OD and JAMES ou. Patient is pseudo ou with yag caps ou. Patient uses Blink bid ou. Patient denies any changes in vision ou. Complete Exam The 77 year old female presents for Complete Exam in the right eye and left eye. Hx of PCIOL OU, YAG PC OU, MGD OU and Retinal Laser OD. Pt reports OU are dry, x years, worse in the winter, Blink gel helps. Pt reports she uses the Blink get BID-4-5x/day. Pt reports no change in VA, OU, DV and NV, since last appt. Yag Cap PO The 76 year old female presents for Yag Cap PO in the left eye. Pt states vision is better after Yag PC OS. Pt is currently using Blink every 4 hours. Pt states she uses FML BID OU for dryness and states it does help. Pt states eyes are burning today. Pt wears OTC readers for near and does not want rx for glasses. Post-Op The 76 year old female presents for a 1 month post op YAG PC OD. Patient states OD vision is better and can tell a difference between eyes. Patient c/o cloudy vision OS. JAMES f/u and IOP check The 76 yea r old female presents for JAMES f/u and IOP check in the right eye and left eye. Pt reports her symptoms have not seemed to improve. Pt reports she took the Doxycycline QD PO x 1 week, and it made her skin feel tingly and she saw no improvement so she quit. Pt reports she uses Blink Gel 3-4 x a day. Pt reports she did warm compresses QD x 1 wk; saw no improvement; then quit. Patient reports the vision OD>OS has become blurred. She has noticed difficulty reading road signs day/night and is bothered by glare from headlights and on bright days. Patient reports her near vision with her glasses is not as good as it used to be. Dry eyes The 76 year old female presents for Dry eyes OU, patient c/o burning and blurry v/a that comes and goes. She also wants to talk to the doctor about her torn retina from 2008, if there is any new treatment for the v/a that was lost then. Patient states v/a is stable, and uses Soothe/Systane PRN OU. Functional Status Date Functional Assessmen t No Information Instructions Date Instruction Additional Infor nando Impression/Plan Impression/Plan Impression/Plan Impression/Plan Impression/Plan Impression/Plan Choroidal nevus of r ight eye - Educational material given Related to Choroidal nevus of right eye Impression/Plan - Ps eudophakia OU- IOL's in good position- Open pc OU.- IOP is stableNevus OD:- Appears stable- Will continue to monitorDry eyes OU:- Recommend artificial tears prn- Will monitorHistory of Retina Tear OD:- Appears stable- Will continue to monitor- Return in 1 year for complete exam or sooner with problems. Follow up - Return i n 1 year with Robert Iraheta M.D. for Complete Exam. Follow up - Return t o clinic in early June for complete exam Impression/Plan - 2 weeks s/p Yag Capsulotomy OS:- Patient has healed well.- The vision has improved OS following the laser.- Vision and IOP stable OU.- Patient has finished the FML drops; no refills are recommended.- Instructed patient to continue the AFT and warm compresses.- Recommend patient return in early June for complete exam or sooner with problems.*Patient would like to discuss starting Restasis at her next appointment to help prevent severe dryness over the Winter. Impression/Plan - 1 month s/p Yag Laser Capsulotomy OD:- Significant visual improvement following laser OD.- Patient has healed well.Posterior Capsular Opacification OS:- PCO accounts for patient's residual visual complaints.- Diagnosis discussed in detail. - Yag Laser treatment, R/B/A discussed with patient.- Advised patient to call with new onset of floaters, flashes of light or a veil covering part of the vision.- Patient elects to proceed with Yag Laser Capsulotomy OS today.- Consent was obtained.- Patient to return in 2-4 weeks for Yag Cap PO OS. Follow up - Return t o clinic in 2-4 weeks for Yag Cap PO OS Other secondary jeremy ract, right eye - Educational material given Related to Other secondary cataract, right eye Impression/Plan - Oc ular Dryness OU:- The dryness has significantly improved OU compared to previous.- Recommend patient continue to use the AFT as needed.MGD/JAMES OU:- MGD OS>OD discussed with patient.- Ocular surface is dramatically improved today, although symptoms are only mildly improved- Continue AT QID OU- Resume WC BID OU- Prescribed FML 0.1% BID OU- Explained FML will be a short term medicationPosterior Capsular Opacification OD>OS:- PCO accounts for patient's visual complaints.- Diagnosis discussed in detail. - Yag Laser treatment, R/B/A discussed with patient.- Advised patient to call with new onset of floaters, flashes of light or a veil covering part of the vision.- Patient elects to proceed with Yag Laser Capsulotomy OD today.- Consent was obtained.- Patient to return in 2-4 weeks for Yag Cap PO OD + Yag Cap OS (needs BCVA & BAT) Follow up - Return t o clinic in 2-4 weeks for Yag Cap PO OD + Yag Cap OS (MRX + BAT) Follow up - 3 month IOP check and follow up for Dryness Impression/Plan - PC O OD>OS discussed with patient. Patient is not currently bothered by the vision at this time. Advised to let us know if she becomes bothered by vision in the future and we can perform YAG capsulotomy. Significant Ocular dryness discussed in detail with patient. Recommend patient begin using warm compresses x 5 minutes BID. Recommend patient try using gel drops 3-4 times daily in both eyes. List of common brands given to patient. Prescribed Doxycycline 50mg BID x 2 weeks, then QD after that. Explained she will continue the Doxycycline for a total of 3 months. Recommend patient return in 3 months or sooner with problems. Assessments Type Assessment Date assessment Bilateral artificial lens implan t assessment Choroidal nevus of right eye Jan Patient Care Teams Name Effective Dates (start - stop) Status Members No Information
--- OUTSIDE RECORDS SUMMARY | 2024-12-03 12:56 | XMS_ITS | Clinical Summary ---
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 Surgical History Surgery Date Site/Laterality Comments SINUS SURGERY TONSILLECTOMY CATARACT EXTRACTION HAND SURGERY Medical History Medical History Date Comments Skin cancer Allergies Asthma Hyperlipidemia Allergic rhinitis Sinusitis Arthritis Gastric reflux Osteoporosis Family History Medical History Relation Name Comments Cancer Father Cancer Mother Relation Name Status Comments Father Mother Social History Tobacco Use Types Packs/Day Years [...] on file 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 Gender Identity Not on file Sexual Orientation Not on file Obstetrics History Last Filed Vital Signs Vital Sign Reading [...] 02/18/2022 9:37 AM CDT Plan of Treatment Health Maintenance Due Date Last Done Comments Depression Screening 1942 Fall Risk Assessment 1942 Osteoporosis Screening-Bone Density Scan 1942 DTaP/Tdap/Td Vaccine (1 - Tdap) 1953 Hepatitis B Screening 1960 Pneumococcal vaccine 65+ (1 of 1 - PCV) 1992 Zoster Vaccine (1 of 2) 1992 Well Visit 65+ 2007 Covid-19 Vaccine (3 - season) 04/25/202407/2021, 10/13/2020 Influenza Vaccine (#1) 2024 Insurance [facility] MEDICARE [facility] Address: [facility] [address] [place] [address] [facility] MEDICARE [facility] Address: [facility] [id number] [place] [phone] Care Teams Staff Field Engineer Relationship Specialty Start Date End Date Gilmar Robb DO [address] [place] [address] PCP - General Family Medicine 04/14/20
--- OUTSIDE RECORDS SUMMARY | 2024-12-03 12:56 | XMS_ITS | Clinical Summary ---
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 Gender Identity Not on file Sexual Orientation Not on file Plan of Treatment Health Maintenance Due Date Last Done Comments DTaP, Tdap and Td Vaccines ( 1 - Tdap) 1961 Zoster Vaccines (1 of 2) 1992 Annual Medicare Wellness Visit 2007 Dexa Scan (General) 2007 Pneumococcal Vaccine: 65+ Ye ars (1 of 1 - PCV) 2007 RSV Immunization or 60+ Years (1 - 1-dose 75+ series) 2017 COVID-19 Vaccine ( - 2023-2 5 season) 2024 Meningococcal B Vaccine Aged Out No l onger eligible based on patient's age to complete this topic Meningococcal Vaccine Aged Out No thania mckenzie eligible based on patient's age to complete this topic RSV Immunizations Under 20 Months Aged Out No longer eligible based on patient's age to complete this topic Insurance MED REPLACE [facility] MEDICARE
== END 2024-12-03 12:47 | disposition home or self-care (01) ==
LOC: CHSIMG 12:50
PROVIDERS: PCP Family Medicine
DX: Z12.31 Encounter for screening mammogram for malignant neoplasm of breast (principal)
CPT/HCPCS: 77063; 77067

== ENCOUNTER 2025-08-21 12:12 | Emergency (ER) | payer MEDICARE, SELFPAY ==
--- OUTSIDE RECORDS SUMMARY | 2025-08-21 12:17 | XMS_ITS | Clinical Summary ---
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 Gender Identity Not on file Sexual Orientation Not on file Plan of Treatment Health Maintenance Due Date Last Done Comments DTaP, Tdap and Td Vaccines ( 1 - Tdap) 1961 Pneumococcal Vaccine: 50+ Ye ars (1 of 1 - PCV) 1992 Zoster Vaccines (1 of 2) 1992 Annual Medicare Wellness Visit 2007 Dexa Scan (General) 2007 RSV Immunization or 60+ Years (1 - 1-dose 75+ series) 2017 COVID-19 Vaccine ( - 2024-2 6 season) 2025 Influenza Adult (#1) 2025 Hepatitis A Vaccines Aged Out No long er eligible based on patient's age to complete this topic Meningococcal B Vaccine Aged Out No l onger eligible based on patient's age to complete this topic Meningococcal Vaccine Aged Out No thania mckenzie eligible based on patient's age to complete this topic RSV Immunizations Under 20 Months Aged Out No longer eligible based on patient's age to complete this topic Insurance MED REPLACE [facility] MEDICARE
--- OUTSIDE RECORDS SUMMARY | 2025-08-21 12:17 | XMS_ITS | Data Portability ---
Author Organization [facility], [id number] [facility] Address [address] [place] [address] Assessment No assessment recorded. Plan of Treatment Reminders Order Date Submit Date Provider Last Modified By Organization Details Last Modified Time Details Appointments None record ed. Lab None record ed. Referral None record ed. Procedures None record ed. Surgeries None record ed. Imaging None record ed. Medication Orders None record ed. Patient TargetsNo targets recorded. Patient InstructionsNo instructions recorded. Reason for Referral None Reported. Problems Name Problem SNOMED Code Status Onset Date Resolution Date Notes Provider Name and Address Organization Details Recorded Time Asthma 539363783 Active Asthma, Problem Code: 493.90; Problem Code Type: ICD-9; Not Available [facility] 13:08:16 Mixed hyperlipid emia 685920833 Active Elevated Cholester ol/Trigly cerides, Problem Code: 272.2; Problem Code Type: ICD-9; Not Available [facility] 13:08:16 Osteoporos is 76925741 Active Osteoporo sis, Problem Code: 733.00; Problem Code Type: ICD-9; Not Available [facility] 13:08:16 Folliculit is 06300663 Active 2024 ROSEMARIE MCELROY MD [address], [place], [address] , [facility] 13:06:26 Problem Notes None recorded. Procedures Surgical History Date Name Laterality Status Provider Name and Address Organization Details Recorded Time 11/24/19 Date of Last Mammogram completed Rena Membreno [facility] 01/19/2025 12:56:26 08/25/19 11 Date of Last Colonoscopy completed Rena [facility] 01/19/2025 12:56:39 11/08/19 05 Date of Last Pap Smear completed Rena [facility] 01/19/2025 12:56:12 dilation and curettage completed Not Available [facility] 12/23/2024 16:02:35 other specified functional endoscopic sinus surgery - therapeutic endoscopy of nose or sinus completed Not Available [facility] 12/23/2024 16:02:35 tonsillectomy completed Not Available [facility] 12/23/2024 16:02:35 vaginal hysterectomy completed Not Available [facility] 12/23/2024 16:02:35 colonoscopy completed Not Available [facility] 12/23/2024 16:02:35 destruction of lesion of skin completed Not Available [facility] 12/23/2024 16:02:35 [facility] 01/19/2025 12:51:[address] [facility] 01/19/2025 12:51:34 Imaging Results None recorded. Procedure Notes None recorded. Medical Equipment None Reported. Allergies Allergen ID Allergen Name Allergen Category Reaction Reaction Severity Criticality Documentation Date Start Date Code Code System Note Provider Name and Address Organization Details Recorded Time 881925 aspirin medicatio n Not available Not available Not available 12/23/2024 1191 RxNorm NOTE: Aller gyRea ction : 'Stom ach Upset '; Not Available [facility] 13:59:32 057095 house dust allergeni c extract environme nt,medica tion Not available Not available Not available 01/19/2025 38977 9 RxNorm Rena [facility] 12:51:34 Medications Name Sig Start Date Stop Date Status Note LastModified by Organization Details LastModified Time Wixela Inhub 250 mcg-50 mcg/dose powder for inhalation USE 1 INHALATION ORALLY TWICE DAILY, RINSE MOUTH AFTER. active Not Available Not Available No t Available Vitals Date Recorded Body height Body mass index (BMI) Body weight Systolic And Diastolic Provider Name and Address Organization Details Last Updated DateTime 01/19/2025 153.035 cm 19.2 kg/m2 00525.64 g 134/76 mm[Hg] Rena Membreno [facility] 01/19/2025 12:58:09 Social History Question Answer Notes LastModified by [employer] Details LastModified Time Tobacco Smoking Status Former Smoker Note: ; Age Start/Stop: teen/teen Not Available [facility] 12/23/2024 18:15:59 Do You Have An Advance Directive? No [email or web address] Information not available 01/19/2025 What Is Your Level Of Caffeine Consumption? None [email or web address] Information not available 01/19/2025 What Type Of Diet Are You Following? REGULAR Information not available 01/19/2025 What Is Your Relationship Status? Other Note: Information not available 12/23/2024 How Much Tobacco Do You Smoke? No [email or web address] Information not available 01/19/2025 Sex: Female Functional Status Question Answer Note LastModified by [employer] Details LastModified Time Do you use any illicit or recreational drugs? No Note: Information not available 12/23/2024 What is your level of alcohol consumption? Occasional Qty: 0-2 per day; Note: Use status used: Never Information not available 12/23/2024 Are you currently employed? No [email or web address] Information not available 01/19/2025 What is your occupation? Note: retired Information not available 12/23/2024 Mental Status None recorded. Family History Relationship Description Onset Age of this Age Resolved Age Notes LastModified by Organization Details LastModified Time Father Malignant neoplastic disease Cancer Fa-Pro state Mom-Br ain Not available 12/23/2024 18:35:32 Mother Malignant neoplastic disease Cancer Fa-Pro state Mom-Br ain Not available 12/23/2024 18:35:32 Sister Kidney disease Kidney Proble ms Not available 12/23/2024 18:35:32 Medical History Condition Response Cancer- Genetic screening Ortho-Other N Pulmonary- Asthma Y Cardiology- High Cholesterol Y Gynecological History Statement/Question Response History of PCOS N Date of Last Mammogram 11/23/2024 History of Fibroids N History of Infertility N History of Vulvar Dysplasia N History of Cervical Dysplasia N Age at Menarche 13 Current Control Method Menopause History of Recurrent Ovarian Cysts N If Post Menopausal, Age at Menopause 34 History of Endometriosis N Date of Last Colonoscopy 08/25/2010 Sexually Active? N History of Dysmenorrhea N Menses Monthly N Date of Last HPV Test 11/07/2004 Date of Last Pap Smear 11/07/2004 History of Sexually Transmitted Infectio n N Date of Last Bone Density 10/02/21 Obstetrics History GPAL:G 5 P 3 0 2 3 Type Value Multiple Births 0 Full Term 3 Induced 0 Spontaneous 2 Premature 0 Living 3 Ectopics 0 Total 5 Past Encounters Encounter ID Performer Location Encounter Start Date Encounter Closed Date Diagnosis/Indication Diagnosis SNOMED-CT Code Diagnosis ICD10 Code Diagnosis IMO Codes Diagnosis Note [id number] ROSEMARIE MCELROY MD [id number] [facility] [address] [place] [address] 01/19/2025 12:24:01 01/19/2025 13:08:22 Folliculitis 96077022 L73.9 [address] w adp Health Concerns Section Related Observation LastModified by Organization Detai ls LastModified Time None Recorded Concern Status LastModified by Organization Details LastModified Time None Recorded Advance Directives Directive N: Payers Insurance Date Sequence Insurance Name Policy Number Policy Xiao Covered Member ID Xiao Member ID Guarantor Name 01/27/2025 1 [employer] (PP[employer]) [id number] Rowena Galan [id number] Rowena Galan Notes Date Note Type Note Provider Name and Address Organization Details Recorded Time 01/19/2025 text/html no SA, no pain or d/c, noticed w wiping, already smaller. had mammo in november ROSEMARIE MCELROY MD [address], [place], [address], [facility] 01/19/2025 13:07:04 OBGyn Episode No OBEpisode recorded.
[2025-08-21 12:18] VITALS: BP 174/91; PULSE 109; RESP 20; TEMP 36.7; O2SAT 100
[2025-08-21 12:43] LABS: EDCOVIDSCREEN Negative (Negative); EDINFLUASCREEN Negative (Negative); EDINFLUBSCREEN Negative (Negative)
--- NOTE | 2025-08-21 13:10 | ED.URI ---
HPI - URI/Sore Throat General Chief Complaint: Upper Respiratory Infection Stated Complaint: Exposure to Covid/Congestion Time Seen by Provider: 08/21/25 12:30 Source: patient and RN notes reviewed Mode of arrival: ambulatory Limitations: no limitations History of Present Illness HPI Narrative: 85-year-old female presents Express Care complaining of upper respiratory symptoms for 2-3 days. Patient reports a mild cough, congestion. Patient has any fevers advice, chills, nausea vomiting, diarrhea, chest pain, difficulty breathing, any other symptoms. Patient says her daughter just recently tested positive for COVID which she was recently exposed to. Patient said she got her COVID in flu vaccine this year. Related Data Home Medications ?Medication ?Instructions ?Recorded ?Confirmed ?Last Taken ?Type albuterol sulfate 90 mcg/actuation 1 inhalation inhalation Q4-6H PRN 08/23/19 06/28/25 Unknown History breath activated powder inhaler Wheezing (ProAir RespiClick) fluticasone 250 mcg-salmeterol 50 1 inhalation inhalation DAILY 08/23/19 06/28/25 12/21/20 05:30 History mcg/dose blistr powdr for inhalation (Advair Diskus) Allergies Allergy/AdvReac Type Severity Reaction Status Date / Time lamotrigine Allergy Intermediate palpitation Verified 08/21/25 12:25 s aspirin AdvReac Intermediate GREAT Verified 08/21/25 12:25 STOMACH DISTRESS Review of Systems Review of Systems: CONSTITUTIONAL: Denies fever, chills, or sweats. EYES: Denies visual changes, redness, or discharge. ENT: Denies rhinorrhea, sore throat, or otalgia. Positive for congestion. CARDIOVASCULAR: Denies chest pain, palpitations, or edema. RESPIRATORY: Positive for cough. Negative for wheezing or dyspnea. GASTROINTESTINAL: Denies abdominal pain, nausea, vomiting, or diarrhea. GENITOURINARY: Denies dysuria or hematuria. SKIN: Denies rash or itching. MUSCULOSKELETAL: Denies back pain, joint pain, or myalgia. NEUROLOGIC: Denies headache, numbness, or weakness. PSYCHIATRIC: Denies anxiety or depression. All other systems reviewed are negative, except as documented in HPI. [facility] Past Medical History Medical History Osteoporosis Hyperlipidemia Asthma Surgical History Surgical History History of adenoidectomy Hx of tonsillectomy History of hysterectomy 1973 Hx of cataract surgery Social History Social History Smoking status: Never smoker Second hand tobacco smoke exposure: No Alcohol intake: never Substance use: never Substance use type: does not use Living arrangements: with family Additional living arrangements comments: LIVES WITH SON EM Occupation/Education: retired Spiritual care concerns: No Comments At the time of my signature, I reviewed and agree with the nursing past medical, surgical, social, and family history. There is no relevant family history pertinent to the patient complaint. Exam Narrative: GENERAL: This is a well-nourished, well-developed adult, in no apparent distress. They are non ill-appearing, nontoxic appearing. HEAD: normocephalic, atraumatic. EYES: Sclera clear/white. Conjunctiva normal. Vision is grossly intact. Extraocular movements intact EARS: External ears normal, auditory canals clear and without drainage, TMs normal without perforation. Hearing grossly intact. NOSE: External nose normal with no obvious nasal discharge, nasal turbinates with erythema no swelling, no rhinorrhea. THROAT: Mucous membranes moist, posterior pharynx clear, without erythema or swelling. Cobblestone appearing. Uvula midline. NECK: Neck supple, non-tender without lymphadenopathy, masses or thyromegaly. CARDIOVASCULAR: Regular rate and rhythm without murmurs, gallops, or rubs. RESPIRATORY: Clear to auscultation. Breath sounds equal bilaterally. No wheezes, rales, or rhonchi. Respiratory rate normal, respiratory effort nonlabored, no respiratory distress SKIN: warm, Dry, intact with no suspicious lesions or rash, good texture and turgor. NEURO: awake, alert, and oriented to person, place and time. There were no obvious focal neurologic abnormalities. EXTREMITIES: No joint tenderness, effusion, or edema noted. BACK: Nontender without deformity. No CVA tenderness. Course Course Level of Care: Express Care Visit Vital Signs Vital signs: Vital Signs Temperature 98.0 F 08/21/25 12:18 Pulse Rate 109 H 08/21/25 12:18 Respiratory Rate 20 08/21/25 12:18 Blood Pressure 174/91 H 08/21/25 12:18 Pulse Oximetry 100 08/21/25 12:18 Oxygen Delivery Room Air 08/21/25 12:18 Temperature 98.0 F 08/21/25 12:18 Pulse Rate 109 H 08/21/25 12:18 Respiratory Rate 20 08/21/25 12:18 Blood Pressure 174/91 H 08/21/25 12:18 Pulse Oximetry 100 08/21/25 12:18 Oxygen Delivery Room Air 08/21/25 12:18 [facility] Narrative Medical decision making narrative: Rapid COVID and flu were negative. Patient could still possibly of COVID given recent exposure, likely viral illness though. Discussed supportive care. Will send patient with benzonatate tablets for cough. Patient nontoxic appearing, no apparent distress. Discussed physical exam findings. Advised supportive measures and signs/symptoms to go to the ER. Pt is appropriate for outpt treatment and f/u. Differential Diagnosis Differential Diagnosis: Differential diagnostic considerations for upper respiratory infection include upper respiratory infection, croup, otitis media, sinusitis, viral infection, bronchitis, influenza, pharyngitis, strep, uvulitis. Lab Data [facility] Lab Attestation statement: I personally reviewed the patient's lab results. Labs: Lab Results 08/21/25 Range/Units 12:25 POC Influenza A Ag Negative (Negative) POC Influenza B Ag Negative (Negative) POC SARS CoV-2 Ag Negative (Negative) Critical Care Time Critical Care Time Critical Care Time: No Discharge Plan Discharge Clinical Impression: Upper respiratory infection Qualifiers: URI type: unspecified viral URI Qualified Code(s): J06.9 - Acute upper respiratory infection, unspecified Patient Disposition: Home Condition: Stable Instructions: Antibiotic Form, Upper Respiratory Infection (ED) Additional Instructions: Your rapid COVID and flu were negative today Viral illness may last between 7-10 days; antibiotics do not cure viral illness and are NOT recommended at this time.\ It is possible that you may have COVID given your recent exposure. Recommend antihistamine Claritin or Zyrtec for congestion. Take the benzonatate tablets as needed for cough. Also, recommend symptomatic treatment includes: rest, fluids, and increase humidity of the air at home. Recommend Acetaminophen as directed on the bottle to reduce fever, pain, headache. Follow instructions on the bottle. Please schedule a follow-up visit with your personal physician for further evaluation and treatment within 3-5days. If you developed chest pain difficulty breathing, vomiting, weakness, confusion, or any serious concerns please go to the ER immediately. Patient Language: Telugu Prescriptions: New benzonatate 200 mg capsule 200 mg PO TID PRN (Reason: cough) Qty: 20 0RF No Action fluticasone propion-salmeterol [Advair Diskus] 250-50 mcg/dose blister with device 1 inhalation INHALATION DAILY ProAir RespiClick 90 mcg/actuation aerosol powdr breath activated 1 inhalation INHALATION Q4-6H PRN (Reason: Wheezing) Follow-up/Referrals: PHYSICIAN NOT ON STAFF,NONSTAFF [Primary Care Provider] Time of Disposition: 12:53
== END 2025-08-21 13:03 | disposition home or self-care (01) ==
DX: U07.1 COVID-19 (principal); M81.0 Age-related osteoporosis without current pathological fracture; E78.5 Hyperlipidemia, unspecified; J45.909 Unspecified asthma, uncomplicated
CPT/HCPCS: 87426; 87804; 99213; G0463

== ENCOUNTER 2025-08-21 18:11 | Emergency (ER) | payer MEDICARE, SELFPAY ==
[2025-08-21] VITALS (7 sets, daily range): BP systolic 129–157; BP diastolic 72–97; PULSE 90–108; RESP 17–20; TEMP 36.8–37.3; O2SAT 95–97
--- NOTE | ~2025-08-21 | XR_ITS ---
EXAMINATION: XR chest 1V portable DATE: 08/21/2025 18:40 INDICATION: Wheezing. TECHNIQUE: A single frontal view of the chest was obtained. COMPARISON: None. FINDINGS: Borderline enlargement of heart with atherosclerotic aorta. Lungs do not show acute findings. IMPRESSION: 1. No acute pulmonary findings. Mild cardiomegaly and atherosclerotic aorta. Reviewed, dictated and finalized at location T. [place] FINANCIAL ANALYST
--- NOTE | 2025-08-21 18:19 | ED_ITS ---
HPI - URI/Sore Throat General Chief Complaint: Upper Respiratory Infection Stated Complaint: nausea Time Seen by Provider: 08/21/25 18:18 Source: patient and family Mode of arrival: ambulatory Limitations: no limitations History of Present Illness HPI Narrative: Patient is an 85-year-old female who is generally healthy but having facial pain and pressure of her sinuses as well as some nausea today. She started to feel ill last night. She went to the urgent care today and was tested for flu and COVID which was negative. She was given Tessalon Perles but she has not taken them at this time. She took [id number]-[id number] sinus medicine but was still nauseous and could not tolerate the medicine. She has asthma but not being short of breath or having any chest pain. No fever or chills. She has not had fluids since 10:00 a.m. but she is urinating all day. MD elicited complaint: nasal congestion and sinus pain Pertinent past history: other (Asthma) Onset (ago): day(s) (2) Consistency: constant Severity: mild Pain scale (0-10): 2 Description of mucous: clear Able to tolerate fluids by mouth: Yes Exacerbating factors: nothing Relieving factors: nothing Context: sick contacts (Family member in the room has COVID) Associated symptoms: nasal congestion, nausea and vomiting Treatments prior to arrival: acetaminophen and cold medicine Related Data Home Medications ?Medication ?Instructions ?Recorded ?Confirmed ?Last Taken ?Type albuterol sulfate 90 mcg/actuation 1 inhalation inhala tion Q4-6H PRN 08/23/19 06/28/25 Unknown History breath activated powder inhaler Wheezing (ProAir RespiClick) fluticasone 250 mcg-salmeterol 50 1 inhalation inhalat ion DAILY 08/23/19 06/28/25 12/21/20 05:30 History mcg/dose blistr powdr for inhalation (Advair Diskus) Allergies Allergy/AdvReac Type Severity Reaction Status Date / Time lamotrigine Allergy Intermediate palpitation Verified 08/21/25 18:46 s aspirin AdvReac Intermediate GREAT Verified 08/21/25 18:46 STOMACH DISTRESS Review of Systems 2 Review of Systems: All systems reviewed & are unremarkable except as noted in HPI and below Constitutional: Constitutional: Reports no additional constitutional complaints Eyes: Eyes: Reports no additional eye complaints ENT: Reports system reviewed and no additional complaints, except as documented Cardiovascular: Cardiovascular: Reports no additional cardiovascular complaints Respiratory: Respiratory: Reports no additional respiratory complaints Gastrointestinal: Gastrointestinal: Reports no additional gastrointestinal complaints Genitourinary: Genitourinary: Reports no additional female genitourinary complaints Musculoskeletal: Musculoskeletal: Reports no additional musculoskeletal complaints Integumentary/Breasts: Skin/Breast: Reports system reviewed and no additional complaints, except as docu Neurologic: Reports system reviewed and no additional complaints, except as documented Psychiatric: Psychiatric: Reports no additional psychiatric complaints Endocrine: Endocrine: Reports no additional endocrine complaints Hematologic/Lymphatic: Hematologic/Lymphatic: Reports no additional hematologic/lymphatic complaints Allergic/Immunologic: Allergic/Immunologic: Reports no additional allergic/immunologic complaints PMFSH Past Medical History Medical History (Updated 08/21/25 @ 20:30 by Eliud Russ MD) Osteoporosis Hyperlipidemia Asthma Surgical History Surgical History History of adenoidectomy Hx of tonsillectomy History of hysterectomy 1973 Hx of cataract surgery Social History Social History Smoking status: Never smoker Second hand tobacco smoke exposure: No Alcohol intake: never Substance use: never Substance use type: does not use Living arrangements: with family Additional living arrangements comments: LIVES WITH SOHEILA STRICKLAND Occupation/Education: retired Spiritual care concerns: No Exam 2 Const: General: no acute distress Nutritional Appearance: well nourished Orientation/consciousness: patient oriented x3 Limitations: no limitations HENMT: Head: normal to inspection Ears: external ears normal F denys/Nose/Sinus: Normal external nose present Eyes: Conjunctivae: conjunctivae normal Pupils: Equal, round and reactive pupils present EOM: EOMs intact bilaterally Neck: Neck: normal visual inspection Chest: Chest palpation & inspection: normal inspection of the chest Resp: Effort & Inspection: normal respiratory effort, not labored, no retractions, not tachypneic and no use of accessory muscles Auscultation: not clear to auscultation bilaterally, no crackles, no rales, no rhonchi, wheezes (Bilateral bases minimally), breath sounds present and diminished lung sounds (Bilateral bases) Cardio: Rate: regular rate Rhythm: regular rhythm Heart sounds: no murmurs GI: Inspection: non-distended GI Palp: Yes Soft to palpation and No Tenderness to palpation present (GI) Auscultation: normal bowel sounds : General: Yes bladder normal to palpation Back/Spine/Pelvis: Back: no CVA tenderness Skin: General skin exam: normal color Rashes: no rashes Wounds: no wounds Neuro: General: patient oriented x3, moves all extremities and no meningeal signs Extrem: General: normal to inspection, no clubbing, cyanosis or edema and no pedal edema Psych: Mental Status: mental status grossly normal Affect: normal affect Attitude: cooperative Course Vital Signs Vital signs: Vital Signs Temperature 36.8 C 08/21/25 18:11 Pulse Rate 108 H 08/21/25 18:11 Respiratory Rate 20 08/21/25 18:11 Blood Pressure 129/77 08/21/25 18:11 Pulse Oximetry 96 08/21/25 18:11 Oxygen Delivery Room Air 08/21/25 18:11 Temperature 36.8 C 08/21/25 18:11 Pulse Rate 90 08/21/25 20:01 Respiratory Rate 20 08/21/25 20:01 Blood Pressure 140/90 08/21/25 20:01 Pulse Oximetry 97 08/21/25 20:01 Oxygen Delivery Room Air 08/21/25 18:15 [facility] Narrative Medical decision making narrative: Patient is a 85-year-old female with some sinus pain and pressure and nausea and not feeling well since yesterday. We will do a septic workup on the patient. Differential Diagnosis Differential Diagnosis: COVID, influenza, pneumonia Lab Data [facility] Lab Attestation statement: I personally reviewed the patient's lab results. 08/21/25 18:53 08/21/25 18:53 Labs: Lab Results 08/21/25 08/21/25 Range/Units 18:42 18:53 WBC 9.8 (4.8-10.8) K/mm3 RBC 4.54 (4.20-5.40) M/mm3 Hgb 13.4 (11.7-13.8) g/dL Hct 41.6 (35.0-42.0) % MCV 91.6 (78.0-102.0) fL MCH 29.5 (27.0-31.0) pg MCHC 32.2 (32-36) g/dL RDW 12.9 (11.6-14.4) % Plt Count 283 (150-420) K/mm3 MPV 10.8 (9.2-11.8) fl Immature Gran % (Auto) 0.3 H (0.0-0.0) % Neut % (Auto) 84.3 H (50.0-70.0) % Lymph % (Auto) 6.1 L (18.0-42.0) % [place] % (Auto) 7.4 (2.0-11.0) % Eos % (Auto) 1.3 (1.0-6.0) % Baso % (Auto) 0.6 (0.0-1.0) % Lymph # (Auto) 0.60 L (1.10-4.50) K/mm3 [place] # (Auto) 0.72 (0.10-0.90) K/mm3 Eos # (Auto) 0.13 (0.02-0.50) K/mm3 Baso # (Auto) 0.06 (0.00-0.10) K/mm3 Abs Immat Gran (auto) 0.03 H (0.00-0.00) K/mm3 Absolute Neuts (auto) 8.25 H (1.70-7.20) K/mm3 Absolute Nucleated RBC 0.00 (0.00-0.00) K/mm3 Nucleated RBC % 0.0 (0-0.0) % Sodium 143 (137-145) mmol/L Potassium 3.6 (3.4-5.0) mmol/L Chloride 107 (98-107) mmol/L Carbon Dioxide 24 (22-30) mmol/L Anion Gap 12 (4-12) mmol/L BUN 15 (7-17) mg/dL Creatinine 0.85 (0.7-1.0) mg/dL Estim Creat Clear Calc 31 ml/min Estimated GFR > 60 (59 - ) Glucose 109 (65-110) mg/dL Calculated Osmolality 297 H (285-295) mOsm/kg Lactic Acid 1.0 (0.7-2.0) mmol/L Calcium 9.6 (8.4-10.2) mg/dL Total Bilirubin 0.8 (0.2-1.3) mg/dL AST 33 (14-36) U/L ALT 26 (6-35) U/L Alkaline Phosphatase 101 (38-126) U/L Troponin I < 0.012 (0.000-0.034) ng/mL NT-Pro-B Natriuret Pep 446 H (19.9-100) pg/mL Total Protein 7.5 (6.3-8.2) g/dL Albumin 4.6 (3.5-5.1) g/dL Influenza A (RT-PCR) Negative (Negative) Influenza B (RT-PCR) Negative (Negative) RSV (RT-PCR) Negative (Negative) SARS-CoV-2 RNA (RT-PCR) Positive A (Negative) Imaging Data Attestation: I personally reviewed and interpreted this imaging study as follows: Radiologist's impression: ITS Impressions Chest X-Ray 08/21/25 18:43 IMPRESSION: 1. No acute pulmonary findings. Mild cardiomegaly and atherosclerotic aorta. ECG Data EKG #1: Attestation: I personally reviewed and interpreted this ECG as follows: ECG completion date: 08/21/25 ECG completion time: 19:06 normal rate, sinus rhythm, no ectopy, non-specific ST changes, normal QRS, normal QT and left axis Discharge Plan Discharge Clinical Impression: COVID Sinusitis Qualifiers: Sinusitis location: unspecified location Chronicity: acute Recurrence: non- recurrent Qualified Code(s): J01.90 - Acute sinusitis, unspecified Patient Disposition: Home Condition: Stable Instructions: Antibiotic Form, Sinusitis (ED), COVID-19 (Coronavirus Disease 2019) (ED) Additional Instructions: Please quarantine for 5 days at home and you must have no fever or symptoms within 24 hours of going back to the community. Patient Language: Jordanian Prescriptions: New prochlorperazine maleate [Compazine] 10 mg tablet 10 mg PO Q8H PRN (Reason: nausea and vomiting) Qty: 20 0RF azithromycin 250 mg tablet See Rx Instructions .ROUTE .COMPLEX Qty: 6 0RF Rx Instructions: For 250 mg dose pack: take 500 mg today (day 1), then 250 mg for 4 days (days 2-5) prednisone 20 mg tablet 20 mg PO DAILY 3 Days Qty: 3 0RF No Action benzonatate 200 mg capsule 200 mg PO TID PRN (Reason: cough) Qty: 20 0RF fluticasone propion-salmeterol [Advair Diskus] 250-50 mcg/dose blister with device 1 inhalation INHALATION DAILY ProAir RespiClick 90 mcg/actuation aerosol powdr breath activated 1 inhalation INHALATION Q4-6H PRN (Reason: Wheezing) Follow-up/Referrals: Gilmar Robb DO [Primary Care Provider, [facility]] Time of Disposition: 20:33
--- OUTSIDE RECORDS SUMMARY | 2025-08-21 18:20 | XMS_ITS | Clinical Summary ---
Author Organization 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
--- OUTSIDE RECORDS SUMMARY | 2025-08-21 18:20 | XMS_ITS | Clinical Summary ---
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 MEDIC[facility] Address: [address] [address] [facility] MEDICARE [facility] Address: [facility] [address] [place] [address] Care Teams Stone Hand Relationship Specialty Start Date End Date Gilmar Robb DO [address] [place] [address] PCP - General Family Medicine 04/14/20
--- NOTE | 2025-08-21 18:38 | ECG_ITS ---
Test Date: 2025-08-21 18:57:20 Measurements Intervals [place] Rate: 96 P: 61 SC: 193 QRS: -4 QRSD: 80 T: 45 QT: 340 QTc: 432 Interpretive Statements SINUS RHYTHM BASELINE ARTIFACT- II, III, AVR, AVL, AVF NORMAL ECG No previous ECG available for comparison Electronically Signed On 08-22-2025 08:48:57 SENIOR CLERK by Amador Trevino D.O.
[2025-08-21] MEDS: ONDANSETRON INJ 4 MG/2 ML VIAL IV PUSH (18:46)
--- NOTE | 2025-08-21 19:09 | PC.NURSE ---
report to priscilla iglbert. call sigala in reach
[2025-08-21 19:19] LABS: Hematocrit 41.6 % (35.0-42.0); Hemoglobin 13.4 g/dL (11.7-13.8); Immature Granulocyte Percent A 0.3 % (0.0-0.0); Lymphocytes Absolute Auto 0.60 K/mm3 (1.10-4.50); Mean Corpuscular HGB Conc 32.2 g/dL (32-36); Mean Corpuscular Hemoglobin 29.5 pg (27.0-31.0); Mean Corpuscular Volume 91.6 fL (78.0-102.0); Nucleated Red Blood Cells Absolute Auto 0.00 K/mm3 (0.00-0.00); Nucleated Red Blood Cells Perc 0.0 % (0-0.0); Platelet Count Result 283 K/mm3 (150-420); Red Blood Count 4.54 M/mm3 (4.20-5.40); White Blood Count 9.8 K/mm3 (4.8-10.8)
[2025-08-21] MEDS: SODIUM CHLORIDE 0.9% IV 1,000 ML 999 ML IV CONT (19:24)
[2025-08-21] MEDS: PROCHLORPERAZINE EDISYLATE 10 MG/2 ML VIAL IM (19:24)
[2025-08-21 19:38] LABS: Alanine Aminotransferase 26 U/L (6-35); Albumin Level 4.6 g/dL (3.5-5.1); Alkaline Phosphatase 101 U/L (38-126); Anion Gap 12 mmol/L (4-12); Aspartate Amino Transferase 33 U/L (14-36); Bilirubin,Total 0.8 mg/dL (0.2-1.3); Blood Urea Nitrogen 15 mg/dL (7-17); Calcium 9.6 mg/dL (8.4-10.2); Carbon Dioxide 24 mmol/L (22-30); Chloride 107 mmol/L (98-107); Estimated CRCL calculation 31 ml/min; Estimated Glomerular Filt Rate > 60; Glucose 109 mg/dL (65-110); Osmolality Calculated 297 mOsm/kg (285-295); Potassium 3.6 mmol/L (3.4-5.0); Sodium 143 mmol/L (137-145); Total Protein 7.5 g/dL (6.3-8.2)
[2025-08-21 19:59] LABS: NT Pro B Type Natriuretic Pept 446 pg/mL (19.9-100); Troponin I < 0.012 ng/mL (0.000-0.034)
[2025-08-21 20:16] LABS: Influenza A QL RT-PCR Negative (Negative); Influenza B QL RT-PCR Negative (Negative); RSV RNA, RT-PCR Negative (Negative); SARS-CoV-2 RNA PCR Positive (Negative)
--- NOTE | 2025-08-21 20:18 | PC.NURSE ---
MARIA DOLORES WITH LAB WITH POSITIVE COVID RESULTS. DR CALI AND DEWAYNE JAMES NOTIFIED.
[2025-08-21] MEDS: ONDANSETRON HCL ODT 4 MG TABLET PO (20:46)
== END 2025-08-21 20:50 | disposition home or self-care (01) ==
PROVIDERS: Emergency Provider Emergency Medicine; PCP Family Medicine
DX: J06.9 Acute upper respiratory infection, unspecified (principal); E78.5 Hyperlipidemia, unspecified; Z20.822 Contact with and (suspected) exposure to COVID-19
CPT/HCPCS: 36415; 71045; 80053; 83605; 83880; 84484; 85025; 87637; 93005; 96361; 96372; 96374; 99284; A9270; J0780; J2405; J7030